=== PATIENT | female | born 1955 | race Caucasian/White ===

== ENCOUNTER 2025-06-20 09:13 | Outpatient (AMB) | payer MEDICARE, OTHER, SELFPAY ==
[2025-06-20 09:16] VITALS: BMI 29.0
--- NOTE | 2025-06-20 09:16 | A.PHYSOV ---
Vital Signs 06/20/25 09:16 Height 5 ft 6 in Weight 180 lb BMI 29.0 Intake Visit Reasons: Right arm pain Intake Note: Patient is a 69 year old female here for right shoulder pain. 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 The shoulder pain has been persistent for quite some time, with the patient experiencing a pain level of 6 out of 10. The pain is described as intermittent and is exacerbated by certain movements, such as washing or brushing hair. The patient reports numbness and tingling sensations, particularly at night, which disrupt sleep. These sensations are likened to needle-like shots and occur despite sleeping on the opposite side. The patient has a history of brain surgery with clips placed, which may affect MRI compatibility. The surgery was performed in [place], and the patient was not provided with specific MRI compatibility information at the time. She completed a 6 week physician directed home exercise plan focusing on her right shoulder. She denies any major relief. She is requesting refill of cyclobenzaprine 5 mg at night as well as an MRI of her right shoulder for further treatment. Pain Description - Pain level is 5 out of 10 - Pain is intermittent and exacerbated by movements such as washing or brushing hair - Pain is described as a needle-like sensation, particularly at night [facility] Surgical History (Updated 06/20/25 @ 09:20 by Siena Alicia MA) History of surgery for cerebral aneurysm History of cancer surgery Social History Alcohol intake: current Alcohol intake frequency: does not drink Patient Tobacco Use Status: Never used Tobacco Use of substances other than those prescribed or required for medical reasons: No Review of Systems Narrative Review of Systems - Musculoskeletal: Reports shoulder pain and limited range of motion - Neurological: Reports numbness and tingling sensations, particularly at night - Sleep: Reports sleep disturbance due to pain Physical Exam Exam Exam: Physical Exam Cervical Spine: Examination of the cervical spine, there is no visible swelling or deformity. She is tender to the right upper trapezius. She has full range of motion of her cervical spine. Special Tests: Axial Compression test: Negative Spurlings test: Negative Lhermitte's sign is Negative Upper Extremities: She is tender to the right lateral deltoid. She is otherwise nontender. Full range of motion of the shoulder in all planes. 5/5 rotator cuff strength throughout. She has a positive Neer test, positive empty can test. Full range of motion of her elbow wrist and hand. 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 Neuro: Sensation: Intact to upper extremities bilateral to light touch Strength C5 (Elbow Flexion): 5/5 on the left and 5/5 on the right. C6 (Elbow Ext): 5/5 on the left and 5/5 on the right. C7 (Elbow Ext): 5/5 on the left and 5/5 on the right. C8 (Finger Flex): 5/5 on the left and 5/5 on the right. T1 (Finger Abd/Add): 5/5 on the left and 5/5 on the right. DTR: C5 (Biceps): Left 2 Right 2 C6 (Brachioradialis): Left 1 Right 1 C7 (Triceps): Left 2 Right 2 White sign: Negative No pathologic clonus. No involuntary movement. 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: Code(s): M19.111 - Post-traumatic osteoarthritis, right shoulder; S46.001S - Unspecified injury of muscle(s) and tendon(s) of the rotator cuff of right shoulder, sequela Category: Medical Plan Pain Management - Affect: Pain disrupts sleep and daily activities - Analgesia: Current pain level is 5 out of 10; patient uses muscle relaxers at night - Adverse Effects: None reported - Activities of Daily Living: Pain affects ability to perform tasks like washing hair - Aberrant Drug Related Behaviors: None reported Plan Patient was informed and verbally consented to the use of an ambient scribe for clinic note documentation during this visit. 1. Shoulder Pain She has failed conservative treatment by using anti-inflammatory medications as well as completing a 6 week physician directed home exercise plan. I recommend MRI of the right shoulder for further evaluation and treatment, I am concerned for rotator cuff tear. I will prescribe 5 mg cyclobenzaprine for at night. She should avoid repetitive overhead activities. Follow-up with our office post MRI. We discussed the benefits of proper nutrition and exercise to maintain a healthy body weight to improve longevity and function. We also discussed the benefits of proper lifting techniques, core strengthening and proper posture. Thank you for allowing me to participate in the care of your patient. Orders: Orders MR shoulder RT w con Today M19.111 - Post-traumatic osteoarthritis, right shoulder, M25.811 - Other specified joint disorders, right shoulder, S46.001S - Unspecified injury of muscle(s) and tendon(s) of the rotator cuff of right shoulder, sequela Medications: New cyclobenzaprine 5 mg PO QPM PRN 30 tabs 4RF muscle spasm M19.111 - Post-traumatic osteoarthritis, right shoulder, M25.811 - Other specified joint disorders, right shoulder, S46.001S - Unspecified injury of muscle(s) and tendon(s) of the rotator cuff of right shoulder, sequela Coding Level of Care Code Tele Est Pt Level 4 (36011) Diagnoses Impingement of right shoulder M25.811 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
== END 2025-06-20 09:43 | disposition home or self-care (01) ==
LOC: HO.HPHYS 09:13
PROVIDERS: PCP Internal Medicine; Visit Provider Physician Assistant
DX: M25.811 Other specified joint disorders, right shoulder (principal); M19.111 Post-traumatic osteoarthritis, right shoulder; S46.001S Unspecified injury of muscle(s) and tendon(s) of the rotator cuff of right shoulder, sequela
CPT/HCPCS: 99214

== ENCOUNTER → 2025-06-20 09:13 | Outpatient (BNVA) | payer MEDICARE, OTHER, SELFPAY | PROVIDERS: PCP Internal Medicine; Visit Provider Physician Assistant | DX: M75.41 Impingement syndrome of right shoulder (principal); M19.111 Post-traumatic osteoarthritis, right shoulder; S46.001S Unspecified injury of muscle(s) and tendon(s) of the rotator cuff of right shoulder, sequela; R20.0 Anesthesia of skin; R20.2 Paresthesia of skin | CPT/HCPCS: 99212 ==

== ENCOUNTER 2025-07-24 13:51 | Outpatient (REF) | payer MEDICARE, OTHER, SELFPAY ==
--- OUTSIDE RECORDS SUMMARY | 2025-07-19 09:30 | XMS_ITS | Encounter Summary ---
Author Organization [facility] Address [address] [place] [address] Care Team Providers Care Die Set Up Worker Name Role Phone Alona Gilliland Primary Care Provider Reason for Visit * Reason Comments Medication Visit Encounter Details Date Type Department Care Team (Late Contact Info) Description 07/19/2025 9:30 AM EST [facility] [address] [place] [address] eMryl Mtz, LELE [address] [place] [address] Primary hypertension (Primary Dx); Hypercholesteremia; Hypothyroidism, unspecified type; Anxiety and depression; Dilatation of thoracic aorta (CMS/HCC V24); Emphysema lung (CMS/HCC V24, CMS/HCC V28); Arthralgia, unspecified joint Social History Tobacco Use Types Packs/Day Years Used Date Smoking Tobacco: Former Cigarettes 2 32 0 08/01/1972 - 08/01/2004 Smokeless Tobacco: Never Tobacco Cessation:Counseling Given: Not Answered Alcohol Use Standard Drinks/Week Comments Yes 0 (1 standard drink = 0.6 oz pur e alcohol) Comments No Sex and Gender Information Value Date Recorded Sex Assigned at Not on file Legal Sex Female 3:52 AM EST Gender Identity Not on file Sexual Orientation Not on file documented as of this encounter Last Filed Vital Signs Vital Sign Reading Time Taken Comments Blood Pressure 134/80 07/19/2025 9:37 AM EST Pulse 82 07/19/2025 9:23 AM EST Temperature - - Respiratory Rate - - Oxygen Saturation - - Inhaled Oxygen Concentration - - Weight 91.3 kg (201 lb 3.2 oz) 07/19/2025 9:23 A M EST Height - - Body Mass Index 32.23 03/19/2025 8:17 AM EDT documented in this encounter Progress Notes * Meryl Mtz NP - 07/19/2025 9:30 AM EST CHIEF COMPLAINT: Medication Visit HPI: Lilly Fernandez is a 69 y.o. female here for regular follow up on chronic issues. - HTN on Prinzide 20/25 mg daily, BP 134/ 80 today, denies headache, chest pain or dyspnea. - HLD on Simvastatin 40 mg QHS, cholesterol 183. LDL 101 in 11/2024 - Hypothyroidism on Levothyroxine 50 mcg daily, TSH WNL in - Depression and anxiety on Prozac and Lamotrigine, followed by in [facility] every 3 months. Denies SI/ HI - Dilatation of thoracic aorta, emphysema and LDCT in : CT scan showed dilatation of ascending aorta 4.5 cm. Followed by thoracic surgeon. Plan: Repeat CT scan in a year. - Radicular pain of RLE, followed by Ortho and PT - Chronic right shoulder pain, seen by physiatry, now will be seeing Jeanne ortho ROS: GENERAL: No malaise, significant weight loss or fever RESPIRATORY: No cough, wheezing or shortness of breath CARDIOVASCULAR: No chest pain, leg swelling or palpitations MUSCULOSKELETAL: See HPI PSYCH: See HPI ENDOCRINE: See HPI NEURO: No persistent headache, syncope, seizures, weakness or numbness PAST MEDICAL HISTORY: Patient Active Problem List Diagnosis Date Noted Pulmonary nodule 08/29/2023 Dilatation of thoracic aorta ([facility]/HCC V24) 12/11/2018 Diverticulitis of sigmoid colon 06/02/2018 Lichen sclerosus 01/26/2018 Colitis 12/19/2017 Anxiety and depression 11/10/2017 Cerebral aneurysm rupture (CMS/HCC V24, CMS/HCC V28) 11/10/2017 Emphysema lung (CMS/HCC V24, CMS/HCC V28) 11/10/2017 Hypercholesteremia 11/10/2017 Hypertension 11/10/2017 Hypothyroid 11/10/2017 Obesity (BMI 30-39.9) 11/10/2017 PASTSURGICAL HSTORY: Past Surgical History: Procedure Laterality Date OTHER SURGICAL HISTORY PROCEDURE: ---- OTHER ----; COMMENT: Lumbar herniated disc OTHER SURGICAL HISTORY Left 2004 PROCEDURE: AL THORACOSCOPY W/LOBECTOMY SINGLE LOBE; COMMENT: L Lobectomy IMMUNIZATIONS/INJECTIONS: Most Recent Immunizations Administered Date(s) Administered COVID-19 ([employer]) 12yo and older 06/06/2025 Influenza Quadravalent, 0.5ml (Fluzone High-dose) 65yo and older 04/16/2021 Influenza trivalent, 0.5mL (Fluad) 65yo and older 07/12/2023 Influenza trivalent, 0.5mL, preservative free (Fluarix; FluLaval; Fluzone) ages 6mo and older (Afluria) 3 years and older 04/22/2018 [employer] Covid-19 Bivalent, Original + Ba.1 (Non-US Trademark COMIRNATY Bivalent) 05/29/2022 [employer] SARS-CoV-2 COVID-19, mRNA, LNP-S, preservative free 03/06/2022 Pneumococcal conjugate 13 valent (Prevnar 13, PCV13) 2mo and older 08/29/2019 Pneumococcal conjugate 20 valent (Prevnar 20, PCV 20) 2mo and older 11/28/2024 Tdap Tetanus diptheria acellular pertussis (Boostrix; Adacel) 7yo and older 08/09/2018 Zoster recombinant (Shingrix) 19yo and older 12/03/2018 SOCIAL HISTORY: Social History Tobacco Use Smoking status: Former Current packs/day: 0.00 Average packs/day: 2.0 packs/day for 32.0 years (64.0 ttl pk-yrs) Types: Cigarettes Start date: 08/01/1972 Quit date: 08/01/2004 Years since quittin.9 Smokeless tobacco: Never Substance Use Topics Alcohol use: Yes Drug use: No FAMILY HISTORY: Family History Problem Relation Name Age of Onset Breast cancer Mother dx'd 39 Other (Other: Failure to thrive) Father Diabetes Sister 30's ca breast Breast cancer Sister Lymphoma Brother Breast cancer Daughter 43 Ovarian cancer Neg Hx Colon cancer Neg Hx Uterine cancer Neg Hx MEDICATIONS DISCONTINUED/REORDERED: There are no discontinued medications. ACTIVE MEDICATIONS: Outpatient Medications Marked as Taking for the 07/19/25 encounter (Office Visit) with Meryl Mtz NP Medication Sig Dispense Refill aspirin 81 mg EC tablet Take 1 tablet (81 mg total) by mouth. FLUoxetine (PROzac) 40 mg capsule lamoTRIgine (LaMICtal) 200 mg tablet Take 1 tablet (200 mg total) by mouth. levothyroxine (SYNTHROID, LEVOTHROID) 50 mcg tablet Take 1 tablet (50 mcg total) by mouth 1 (one) time each day before breakfast. 90 each 1 lisinopril-hydroCHLOROthiazide (PRINZIDE,ZESTORETIC) 20-25 mg per tablet Take 1 tablet by mouth 1 (one) time each day. 90 tablet 1 simvastatin (ZOCOR) 40 mg tablet Take 1 tablet (40 mg total) by mouth at bedtime. 90 each 1 ALLERGIES: No Known Allergies PHYSICAL EXAM: Visit Vitals BP 134/80 Pulse 82 Wt 91.3 kg (201 lb 3.2 oz) LMP (LMP Unknown) No BMI 32.23 kg/m?? OB Status Postmenopausal Smoking Status Former BSA 2.01 m?? Body mass index is 32.23 kg/m??. APPEARANCE: Alert and in no acute distress EYES: PERRL, conjunctiva and sclera normal HEART: RRR with normal S1 and S2 LUNG: clear to auscultation EXTREMITIES: Extremities warm, no edema NEURO: Awake, alert and oriented x 3. Cranial nerves II-XII intact LABS: LABS/IMAGING: Lab Results Component Value Date WBC 6.5 08/10/2024 HGB 14.0 08/10/2024 HCT 44.1 08/10/2024 MCV 88.7 08/10/2024 Lab Results Component Value Date NA 137 12/18/2024 K 4.3 12/18/2024 CO2 32 12/18/2024 CL 102 12/18/2024 BUN 20 12/18/2024 ALKPHOS 85 12/18/2024 Lab Results Component Value Date CHOL 183 12/18/2024 LDL 131 03/06/2024 HDL 56 12/18/2024 TRIG 129 12/18/2024 IMPRESSION / Plan 1. Primary hypertension 2. Hypercholesteremia 3. Hypothyroidism, unspecified type 4. Anxiety and depression 5. Dilatation of thoracic aorta (CMS/HCC V24) 6. Emphysema lung (CMS/HCC V24, CMS/HCC V28) 7. Arthralgia, unspecified joint - HTN well-controlled, continue Prinzide 20/25 mg daily - HLD, stable, continue Simvastatin 40 mg QHS - Hypothyroidism, well-controlled, continue Levothyroxine 50 mcg daily - Depression and anxiety, stable, continue Prozac and Lamotrigine, follow up with in [place] - Dilatation of thoracic aorta, emphysema, stable. Follow-up with thoracic surgeon - Joint pain, follow-up with Ortho - RTO in 4 months or sooner with PCP care team Meryl Mtz NP on 07/19/2025 at 9:37 AM EST documented in this encounter Plan of Treatment Upcoming Encounters Date Type Department Care Team (Late st Contact Info) Description 11/19/2025 8:45 AM EDT Office Visit Internal Medicine - [address] [phone] Meryl Mtz NP [address] [place] [id number] documented as of this encounter Visit Diagnoses Diagnosis Primary hypertension- Primary Unspecified essential hypertension Hypercholesteremia Pure hypercholesterolemia Hypothyroidism, unspecified type Anxiety and depression Dilatation of thoracic aorta ([facility] V24) Thoracic aneurysm without mention of rupture Emphysema lung (CMS/HCC V24, CMS/HCC V28) Other emphysema Arthralgia, unspecified joint documented in this encounter Additional Health Concerns Assessment Noted Time PHQ-9 Depression Total Score: 0 07/19/20 9:25 AM EST documented as of this encounter Care Teams Die Set Up Worker Relationship Specialty Start Date End Date Alona Gilliland DO [address] [place] [id number] PCP - General Internal Medicine 07/19/25 documented as of this encounter
--- NOTE | ~2025-07-24 | XR_ITS ---
EXAMINATION: XR SKULL 1-3 VIEWS HISTORY: PRE MRI- SKULL COMPARISON: There are no prior studies available for comparison. FINDINGS: AP and lateral views of the skull are submitted. Osseous mineralization is normal. No fracture or lytic lesion is identified. There are embolization coils in the suprasellar region. XR/XR skull <4V IMPRESSION: Embolization coils in the suprasellar region. Electronically signed by: Real Bauer MD 07/24/2025 02:47 PM [facility]
--- OUTSIDE RECORDS SUMMARY | 2025-07-24 14:00 | XMS_ITS ---
Author Name [facility] Organization Unknown Care Team Organization Name Specialty Phone Email Start Date End Da te [facility] Sofia Stacy Primary Care 06/08/202203/01
--- OUTSIDE RECORDS SUMMARY | 2025-07-24 14:00 | XMS_ITS | Clinical Summary ---
Author Organization [address] [place] [address] Address [address] [place] [address] Phone Care Team Providers Care Engine Lathe Set Up Operator Name Role Phone Alona Gilliland Primary Care Provider Allergies No known active allergies Medications aspirin 81 mg EC tablet Take 1 tablet (81 mg total) by mouth. Active lamoTRIgine (LaMICtal) 200 mg tablet Take 1 tablet (200 mg total) by mouth. Active simvastatin (ZOCOR) 40 mg tabletIndications :Hypercholesterem ia Take 1 tablet (40 mg total) by mouth at bedtime. 90 each 1 03/19/2025 09/15/19 26 Active levothyroxine (SYNTHROID, LEVOTHROID) 50 mcg tabletIndications :Hypothyroidism, unspecified type Take 1 tablet (50 mcg total) by mouth 1 (one) time each day before breakfast. 90 each 1 03/19/2025 09/15/19 26 Active lisinopril-hydroC HLOROthiazide (PRINZIDE,ZESTORE TIC) 20-25 mg per tabletIndications :Primary hypertension Take 1 tablet by mouth 1 (one) time each day. 90 tablet 1 03/19/2025 Active FLUoxetine (PROzac) 40 mg capsule 03/19/2025 Active Active Problems Problem Noted Date Diagnosed Date Pulmonary nodule 08/29/2023 Overview (04/19/2024): Last Assessment & Plan: 68-year-old female who is s/p a left upper lobectomy for lung cancer and treated with adjuvant chemotherapy back in 2004 who was part of the lung cancer screening program and has been being followed for waxing and waning pulmonary nodules which have resolved. Will be referring her back to the lung cancer screening program with her next LDCT scan due in March 2025 Dilatation of thoracic aorta 12/11/2018 Overview (04/19/2024): CT scan showed stable at 4 cm. Repeat imaging needed in January 2020; stable 04/21 Diverticulitis of sigmoid colon 06/02/2018 Lichen sclerosus 01/26/2018 Overview (04/19/2024): Of vulva, follows with [facility] s/p biopsy 12/2017 Colitis 12/19/2017 Overview (04/19/2024): Admitted to [facility] for infectious colitis in early October 2017. Dx on CT and treated with abx. Follows with [facility] colonoscopy pending 04/2018 Anxiety and depression 11/10/2017 Overview (04/19/2024): Follows with psychiatry in [place] Dr. Kiran Cerebral aneurysm rupture 11/10/2017 Overview (04/19/2024): 2009 s/p coiling Emphysema lung 11/10/2017 Hypercholesteremia 11/10/2017 Hypertension 11/10/2017 Hypothyroid 11/10/2017 Obesity (BMI 30-39.9) 11/10/2017 Encounters Date Type Department Care Team Description 07/19/2025 9:30 AM EST Office Visit Internal [facility] - [facility] [address] [place] [address] Meryl Mtz, LELE Primary hypertension (Primary Dx); Hypercholesteremia; Hypothyroidism, unspecified type; Anxiety and depression; Dilatation of thoracic aorta (CMS/HCC V24); Emphysema lung (CMS/HCC V24, CMS/HCC V28); Arthralgia, unspecified joint from Last 3 Months Immunizations Immunization Administration Dates Next Due Influenza Quadravalent, 0.5m l (Fluzone High-dose) 65yo and older 04/16/2021 Influenza trivalent, 0.5mL ( Fluad) 65yo and older 07/12/2023,04/09/2022,04/01/2021,2019,04/19/2019 Influenza trivalent, 0.5mL, preservative free (Fluarix; FluLaval; Fluzone) ages 6mo and older (Afluria) 3 years and older 04/22/2018,05/16/2017 Pfizer Covid-19 Bivalent, Or iginal + Ba.1 (Non-US Trademark [employer] Bivalent) 05/29/2022 Pneumococcal conjugate 13 va lent (Prevnar 13, PCV13) 2mo and older 08/29/2019 Pneumococcal conjugate 20 va lent (Prevnar 20, PCV 20) 2mo and older 11/28/2024 Tdap Tetanus diptheria acell ular pertussis (Boostrix; Adacel) 7yo and older 08/09/2018 Zoster recombinant (Shingrix ) 19yo and older 12/03/2018 Surgical History Surgery Date Site/Laterality Comments OTHER SURGICAL HISTORY PROCEDURE: ---- OTHER ----; COMMENT: Lumbar herniated disc OTHER SURGICAL HISTORY 2004 Left PROCEDURE: OR THORACOSCOPY W/LOBECTOMY SINGLE LOBE; COMMENT: L Lobectomy Medical History Medical History Date Comments Hypertension 11/10/2017 DX:Hypertension Hypercholesteremia 11/10/2017 DX:Hyperchole steremia Hypothyroid 11/10/2017 DX:Hypothyroid Former tobacco use 11/10/2017 DX:Former tob acco use; COMMENT: 35 yrs quit 2004 Emphysema lung ([facility]/HCC V24, [facility] V28) 018 DX:Emphysema lung (HCC) History of lung cancer 11/10/2017 DX:Histor y of lung cancer; COMMENT: 2004 s/p left lobectomy and chemotherapy. Followed with oncology. In remission Cerebral aneurysm rupture ([facility]/HCC V24, [facility] V28) 11/10/2017 DX:Cerebral aneurysm rupture (HCC); COMMENT: 2008 s/p coiling Anxiety and depression 11/10/2017 DX:Anxiet y and depression; COMMENT: Follows with psychiatry in [place] Obesity (BMI 30-39.9) 11/10/2017 DX:Obesity (BMI 30-39.9) Lichen sclerosus 01/26/2018 DX:Lichen scler osus; COMMENT: Of vulva, follows with [facility] s/p biopsy 12/2017 Family history of breast cancer 12/19/2017 DX:Family history of breast cancer; COMMENT: Mother and sister both in 30's. Mother at age 39 related to cancer. Colitis 12/19/2017 DX:Colitis; COMM ENT: Admitted to [facility] for infectious colitis in early October 2017. Dx on CT and treated with abx. 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 Family History Medical History Relation Name Comments Lymphoma Brother Breast cancer Daughter 43 Other: Failure to thrive Father Breast cancer Mother dx'd 39 Diabetes Sister 1 30's ca breast Breast cancer Sister 2 Colon cancer Neg Hx Ovarian cancer Neg Hx Uterine cancer Neg Hx Relation Name Status Comments Brother Daughter 43 Alive Father Mother dx'd 39 Sister 1 30's Alive Sister 2 Social History Tobacco Use Types Packs/Day Years [...] on file Sexual Orientation Not on file Last Filed Vital Signs Vital Sign Reading Time Taken Comments Blood Pressure 134/80 07/19/2025 9:37 AM EST Pulse 82 07/19/2025 9:23 AM EST Temperature 36.3 C (97.3 F) 12/30/2024 10:09 AM EDT Respiratory Rate 16 10/03/2024 10:02 AM EST Oxygen Saturation 96% 03/08/2025 1:06 PM EDT Inhaled Oxygen Concentration - - Weight 91.3 kg (201 lb 3.2 oz) 07/19/2025 9:23 A M EST Height 168.3 cm (5' 6.25 ) 03/19/2025 8:17 AM ED T Body Mass Index 32.23 03/19/2025 8:17 AM EDT Plan of Treatment Upcoming Encounters Date Type Department Care Team (Late st Contact Info) Description 11/19/2025 8:45 AM EDT Office Visit Internal Medicine - [facility] [address] [place], [place] [phone] Meryl Mtz NP [address] [place] [address] Health Maintenance Due Date Last Done Comments Medicare Annual Wellness Visit 04/28/2024 04/28/2023 Breast Cancer Screening 09/01/2025 09/01/19 24, 09/01/2023, 02/24/2022, Additional history exists Falls Risk Assessment 11/28/2025 11/28/2024, 023 Social Influencers of Health Screening 11/29/2025 11/29/2024 COVID-19 Vaccine ( season) 2025 06/06/2025, 07/27/2024, 07/13/2023, Additional history exists Hypertension/CHF/CAD Annual BMP Blood Test 12/18/2025 12/18/2024, 09/12/2024, 03/06/2024, Additional history exists Colorectal Cancer Screening: Colonoscopy 05/03/2027 05/03/2024, 05/30/2018 Cholesterol Screening (Lipid Panel) 12/18/2029 12/18/2024, 03/06/2024, 03/06/2024 DTaP,Tdap,and Td Vaccines (3 - Td or Tdap) 07/13/2033 07/13/2023, 08/09/2018 Osteoporosis Screening (Bone Density Screening) 04/19/2034 04/19/2024, 04/19/2024, 08/06/2021 Hepatitis C Screening Completed 11/10/2017 Zoster Vaccines Completed 11/03/2022, 08/01, 12/03/2018 RSV Immunization Adult Patients Completed 11/10/2023 Pneumococcal Vaccine: 50+ Years Completed 11/28/2024, 08/29/2019, 11/07/2017 Influenza Vaccine Completed 05/15/2025, , 07/12/2023, Additional history exists Depression Screening Completed 07/19/2025, 04/28/20 23 HIB Vaccines Aged Out No longer eligi ble based on patient's age to complete this topic HPV Vaccines Aged Out No longer eligi ble based on patient's age to complete this topic Hepatitis A Vaccines Aged Out No long er eligible based on patient's age to complete this topic Hepatitis B Vaccines Aged Out No long er eligible based on patient's age to complete this topic IPV Vaccines Aged Out No longer eligi ble based on patient's age to complete this topic MMR Vaccines Aged Out No longer eligi ble based on patient's age to complete this topic Meningococcal ACWY Vaccine Aged Out N o longer eligible based on patient's age to complete this topic Meningococcal B Vaccine Aged Out No l onger eligible based on patient's age to complete this topic RSV Immunization Patients Under 20 months Aged Out No longer eligible based on patient's age to complete this topic Varicella Vaccines Aged Out No longer eligible based on patient's age to complete this topic Procedures Procedure Name Priority Date/Time Associated Diagnosis Comments COMPREHENSIVE METABOLIC PANEL Routine 12/18/2024 11:35 AM EDT Hypercholesteremia LIPID PANEL WITH REFLEX TO DIRECT LDL Routine 12/18/2024 11:35 AM EDT Hypercholesteremia DXA BONE DENSITY STUDY 1+ SITS AXIAL SKEL Routine 04/19/2024 4:09 PM EDT Encounter for screening for osteoporosis SCREENING MAMMOGRAPHY BI 2-VIEW BREAST INC CAD Routine 09/01/2023 6:54 PM EST Encounter for screening mammogram for malignant neoplasm of breast DEPRESSION SCREENING Routine 04/28/2023 FALLS RISK ASSESSMENT Routine 04/28/2023 COLONOSCOPY Routine 05/30/2018 HEPATITIS C SCREENING Routine 11/10/2017 from Last 3 Months or Most Recently Relevant to Health Maintenance Results * (ABNORMAL) Lipid panel with reflex to direct LDL (12/18/2024 11:35 AM EDT) Cholesterol 183 0 - 200 mg/dL LAB CHEMISTRY METHOD 12/18/2024 3:10 PM EDT [facility] Triglycerides 129 0 - 150 mg/dL LAB CHEMISTRY METHOD 12/18/2024 3:10 PM EDT [facility] HDL 56 >=40 mg/dL LAB CHEMISTRY METHOD 12/18/2024 3:10 PM EDT [facility] LDL Calculated 101(H) 0 - 100 mg/dL LAB CHEMISTRY METHOD 12/18/2024 3:10 PM EDT [facility] VLDL Cholesterol Dar 25.8 mg/dL LAB CHEMISTRY METHOD 12/18/2024 3:10 PM EDT [facility] Non HDL Chol. (LDL+VLDL) 127 <145 mg/dL LAB CHEMISTRY METHOD 12/18/2024 3:10 PM EDT [facility] Chol/HDL Ratio 3.3 0.0 - 4.4 LAB CHEMISTRY METHOD 12/18/2024 3:10 PM T [facility] Blood Venous blood specimen / Unknown Venipuncture / Unknown 12/18/2024 11:35 AM EDT 12/18/2024 11:35 AM EDT Meryl Mtz NP LAB BLOOD ORDERABLES Final Resul t [facility] [address] [place] [address], * Comprehensive metabolic panel (12/18/2024 11:35 AM EDT) Pathologist [facility] Sodium 137 133 - 145 mmol/L LAB CHEMISTRY METHOD 12/18/2024 3:10 PM T [facility] Potassium 4.3 3.5 - 5.5 mmol/L LAB CHEMISTRY METHOD 12/18/2024 3:10 PM EDT [facility] Chloride 102 96 - 110 mmol/L LAB CHEMISTRY METHOD 12/18/2024 3:10 PM [facility] CO2 32 21 - 32 mmol/L LAB CHEMISTRY METHOD 12/18/2024 3:10 PM [facility] Anion Gap 3 3 - 11 LAB CHEMISTRY METHOD 12/18/2024 3:10 PM [facility] Glucose 98 70 - 100 mg/dL LAB CHEMISTRY METHOD 12/18/2024 3:10 PM [facility] BUN 20 5 - 25 mg/dL LAB CHEMISTRY METHOD 12/18/2024 3:10 PM [facility] Creatinine 0.75 0.50 - 1.10 mg/dL LAB CHEMISTRY METHOD 12/18/2024 3:10 PM [facility] eGFR 85 >=60 mL/min/1. 73m2 LAB CHEMISTRY METHOD 12/18/2024 3:10 PM [facility] Comment:Calculation based on the Chronic Kidney Disease Epidemiology Collaboration (CKD-EPI) equation refit without adjustment for race. BUN/Creatinine Ratio 26.7 LAB CHEMISTRY METHOD 12/18/2024 3:10 PM [facility] Calcium 9.3 8.5 - 10.5 mg/dL LAB CHEMISTRY METHOD 12/18/2024 3:10 PM [facility] AST (SGOT) 16 10 - 42 unit/L LAB CHEMISTRY METHOD 12/18/2024 3:10 PM [facility] ALT (SGPT) 23 10 - 60 unit/L LAB CHEMISTRY METHOD 12/18/2024 3:10 PM [facility] Alkaline Phosphatase 85 42 - 121 unit/L LAB CHEMISTRY METHOD 12/18/2024 3:10 PM [facility] Total Protein 7.3 6.0 - 8.0 g/dL LAB CHEMISTRY METHOD 12/18/2024 3:10 PM [facility] Albumin 3.8 3.2 - 5.0 g/dL LAB CHEMISTRY METHOD 12/18/2024 3:10 PM EDT [facility] Total Bilirubin 0.4 0.0 - 1.4 mg/dL LAB CHEMISTRY METHOD 12/18/2024 3:10 PM EDT [facility] Blood Venous blood specimen / Unknown Venipuncture / Unknown 12/18/2024 11:35 AM EDT 12/18/2024 11:35 AM EDT us Meryl Mtz NP LAB BLOOD ORDERABLES Final Resul t [facility] [address] [place] [address], * DXA BONE DENSITY STUDY 1+ SITS AXIAL SKEL (04/19/2024 4:09 PM EDT) Anatomical Region Laterality Modality Bone Densitometr y 09/29/2023 9:01 AM EST Narrative 04/19/2024 6:56 PM EDT BONE DENSITY SCAN (DEXA): FINDINGS: Lumbar Spine T-score is -0.2. (SD relative to 20-29 y/o adult) Z-score is 1.9. (SD relative to age matched peers) This is considered normal by WHO criteria. Left Hip T-score is -0.2. Z-score is 1.6. This is considered normal by WHO criteria. Comparison exam(s): 08/06/2021. Unable to assess for statistically significant change in bone mineral density due to dissimilar scan methods. IMPRESSION: IMPRESSION: Normal bone mineral density by WHO criteria. The [facility] Department of Internal Medicine recommends using National Osteoporosis Foundation (NOF) guidelines in treatment decisions related to osteoporosis. NOF guidelines suggest considering treatment for postmenopausal women and men aged 50 or older presenting with the following: History of hip or vertebral fracture. T-score = -2.5 (DXA) at the femoral neck, total hip, or spine, after appropriate evaluation to exclude secondary causes. Low bone mass (T-score between -1.0 and -2.5 at the femoral neck or spine) AND a 10-year probability of a hip fracture = 3% OR a 10-year probability of a major osteoporosis-related fracture = 20% based on the [place]-adapted WHO algorithm Please note that all treatment decisions require clinical judgment and consideration of individual patient factors, including patient preferences, co-morbidities, previous drug use, risk factors not captured in the FRAX model (e.g., frailty, falls, vitamin D deficiency, increased bone turnover, interval significant decline in bone density) and possible under- or over-estimation of fracture risk by FRAX. Optional alternative screening schedule based on marquis Loja., [facility] August 19, 2011 for patients with osteopenia (based on hip BMD T-score) is as follows: * advanced osteopenia (T scores -2.00 to -2.49), BMD testing every year * moderate osteopenia (T scores -1.50 to -1.99), BMD testing every 5 years mild osteopenia or normal BMD (T scores -1.50 and higher), BMD testing every 15 years Procedure Note Glenda Bell MD - 05/16/2024 BONE DENSITY SCAN (DEXA): FINDINGS: Lumbar Spine T-score is -0.2. (SD relative to 20-29 y/o adult) Z-score is 1.9. (SD relative to age matched peers) This is considered normal by WHO criteria. Left Hip T-score is -0.2. Z-score is 1.6. This is considered normal by WHO criteria. Comparison exam(s): 08/06/2021. Unable to assess for statisticallysignificant change in bone mineral density due to dissimilar scan methods. IMPRESSION: IMPRESSION: Normal bone mineral density by WHO criteria. The [facility] Department of Internal Medicine recommendsusing National Osteoporosis Foundation (NOF) guidelines in treatment decisions related toosteoporosis. NOF guidelines suggest considering treatment for postmenopausal women and menaged 50 or older presenting with the following: History of hip or vertebral fracture. T-score = -2.5 (DXA) at the femoral neck, total hip, or spine, afterappropriate evaluation to exclude secondary causes. Low bone mass (T-score between -1.0 and -2.5 at the femoral neck or spine)AND a 10-year probability of a hip fracture = 3% OR a 10-year probability of a majorosteoporosis-related fracture = 20% based on the [place]-adapted WHO algorithm Please note that all treatment decisions require clinical judgment andconsideration of individual patient factors, including patient preferences, co- morbidities,previous drug use, risk factors not captured in the FRAX model (e.g., frailty, falls, vitaminD deficiency, increased bone turnover, interval significant decline in bone density) andpossible under- or over-estimation of fracture risk by FRAX. Optional alternative screening schedule based on marquis Loja., [place] 2011 for patients with osteopenia (based on hip BMD T-score) is as follows: * advanced osteopenia (T scores -2.00 to -2.49), BMD testing every year * moderate osteopenia (T scores -1.50 to -1.99), BMD testing every 5years mild osteopenia or normal BMD (T scores -1.50 and higher), BMD testingevery 15 years Meryl Mtz NP IMG DXA PROCEDURES Final Result * SCREENING MAMMOGRAPHY BI 2-VIEW BREAST INC CAD (09/01/2023 6:54 PM EST) Anatomical Region Laterality Modality Radiographic Lisa ging 02/24/2022 3:50 PM EDT Narrative 09/02/2023 7:57 AM EST This is a summary report. The complete report is available in the patient's medical record. If you cannot access the medical record, please contact the sending organization for a detailed fax or copy. Full field digital screening tomosynthesis mammography, reviewed with CAD and compared to previous mammograms of 02/24/2022 and 02/19/2021. The breasts are composed of fatty and fibroglandular tissue. No suspicious mass, architectural distortion or suspicious calcifications are identified. IMPRESSION: : No mammographic evidence of malignancy. BIRADS 1-Negative; N. 5 year breast cancer risk assessment 7.4 % Lifetime breast cancer risk assessment 21.2 % Breast cancer risk category High (>20%) Procedure Note Zoila Mcdonald MD - 03/19/2024 This is a summary report. The complete report is available in thepatient's medical record. If you cannot access the medical record, pleasecontact the sending organization for a detailed fax or copy. Full field digital screening tomosynthesis mammography, reviewed with CADbreanna compared to previous mammograms of 02/24/2022 and 02/19/2021. Thebreasts are composed of fatty and fibroglandular tissue. No suspiciousmass, architectural distortion or suspicious calcifications areidentified. IMPRESSION: : No mammographic evidence of malignancy. BIRADS 1-Negative; N. 5 year breast cancer risk assessment 7.4 % Lifetime breast cancer risk assessment 21.2 % Breast cancer risk category High (>20%) Maggie Wallace MD IMG XR PROCEDURES Final Result * Falls Risk Assessment (04/28/2023) Pathologist [facility] Falls Risk Assessment abstracted Result [facility] Provider HEALTH MAINTENANCE Final Result * Depression Screening (04/28/2023) Pathologist [facility] Depression Screening abstracted Result [facility] Provider HEALTH MAINTENANCE Final Result * Colonoscopy (05/30/2018) Pathologist [facility] Colonoscopy completed Anatomical Region Laterality Modality Other Result [facility] Provider HEALTH MAINTENANCE Final Result * Hepatitis C Screening (11/10/2017) Pathologist [facility] Hepatitis C Screening abstracted [facility] Provider HEALTH MAINTENANCE Final Result from Last 3 Months or Most Recently Relevant to Health Maintenance Insurance MEDICARE [address] [place] [address] Care Teams Engine Lathe Set Up Operator Relationship Specialty Start Date End Date Alona Gilliland DO [facility] [place] [address] PCP - General Internal Medicine 07/19/25
== END 2025-07-24 13:52 | disposition home or self-care (01) ==
LOC: HO.XRAY 13:51
PROVIDERS: PCP Internal Medicine; Visit Provider Radiology Diagnostic Radiology
DX: Z01.818 Encounter for other preprocedural examination (principal)
CPT/HCPCS: 70250

== ENCOUNTER → 2025-07-24 14:02 | Outpatient (BNV) | payer MEDICARE, OTHER, SELFPAY | PROVIDERS: PCP Internal Medicine; Visit Provider Radiology Diagnostic Radiology | DX: Z86.79 Personal history of other diseases of the circulatory system (principal); Z98.890 Other specified postprocedural states | CPT/HCPCS: 70250 ==